=== PATIENT | female | born 1975 | race Caucasian/White ===

== ENCOUNTER 2023-05-05 12:14 | Emergency (ER) | payer MEDICAID, SELFPAY ==
[2023-05-05 12:28] VITALS: BP 129/79; PULSE 75; RESP 16; TEMP 36.7; O2SAT 97; BMI 20.9
--- NOTE | 2023-05-05 12:46 | USCV_ITS ---
Irma Amador Age: 47 Gender: F : 1975 Exam Date: 05/05/2023 12:51 Ordering Phys: Markus Lopez DO Technologist: CT Exam Location: [facility] – [place]_ Indication: PROCEDURES: Venous duplex imaging was performed in only the right upper extremity. The following venous structures were evaluated: internal jugular vein, subclavian vein, axillary vein, and brachial veins. In addition, the basilic vein, cephalic vein, radial vein, and ulnar vein. FINDINGS: The veins of the right upper extremity are readily compressible with normal venous flow dynamics including spontaneous flow, respiratory phasic variation and augmentation. CONCLUSIONS No right upper extremity DVT. Dr. Sahra Adhikari DO (Electronically Signed) Final Date: 05 May 2023 14:13 S
--- NOTE | 2023-05-05 13:55 | ED_ITS ---
HPI - Extremity Problem General: Chief complaint: Extremity Problem,Nontraumatic Stated complaint: Right arm swelling/pain sent by PCP Time Seen by Provider: 05/05/23 13:09 Source: patient Mode of arrival: ambulatory Limitations: no limitations History of Present Illness: Patient is a 47-year-old female presents to ED due to the complaint of swelling to her right hand x several weeks. Patient states approximately 10 weeks ago she developed right upper extremity/facial weakness and was told she had had a stroke. She states she had MRIs that were reportedly normal. She is also seeing cardiology and was ordered Holter monitor, echocardiogram, EKG all of which were reportedly normal. She saw Dr. Reid/neurology today who is ordering additional testing. He wanted her to come to the ED and get an ultrasound of her right upper extremity to rule out DVT. She has no new symptoms at presentation today. MD Complaint: extremity swelling Onset (ago): week(s) Location: right and upper extremity Radiation: none Relieving factors: nothing Exacerbating factors: nothing Associated symptoms: Reports other (UE weakness); Deny chest pain or fever(s) Review of Systems Const: Denies: fever(s), chills, body aches, fatigue or malaise Card: Denies: chest pain Resp: Denies: dyspnea GI: Denies: nausea or vomiting Musc: Reports: extremity swelling; Denies: neck pain, back pain, joint pain, joint swelling, joint redness or joint warmth Neuro: Reports: weakness in extremities (R UE); Denies: headache(s) or numbness in extremities [facility] ED PFSH: Social History Smoking and tobacco status: current every day smoker Second hand smoke exposure: No Smoking risk assessment/counseling performed?: No Alcohol intake: current Alcohol intake frequency: holidays/special occasions only Desire information about alcohol rehabilitation?: No Counseling given: No Substance/Drug Use: never Desire information about substance/drug rehabilitation?: No Counseling given: No Adopted: No Caregiver/support person: No Lives independently: Yes Household members: none Housing: Manufactured/Mobile home Marital status: Single Number of children: 2 Highest education level completed: Some College, No Degree service: No Current occupational status: unemployed Physical Exam Const: COMMON NORMALS: no acute distress, average body habitus, no limitations, healthy appearing, alert and well nourished Resp: COMMON NORMALS: normal respiratory effort and clear to auscultation bilaterally AUSCULTATION: clear to auscultation bilaterally Cardio: COMMON NORMALS: regular rate and regular rhythm RATE: regular rate RHYTHM: regular rhythm Extremity: COMMON NORMALS: capillary refill normal GENERAL: Yes normal exam except as noted RIGHT UPPER EXTREMITY: Yes hand & digits (swelling noted throughout R hand/digits) OTHER: UE weakness, decreased visual merchandising assistant strength; normal cap refill/pulses; compartments are soft Neuro: SENSORIUM/ORIENTATION: Yes alert Course Vital Signs: Vital signs: Vital Signs Temperature 98.0 F 05/05/23 12:28 Pulse Rate 75 05/05/23 12:28 Respiratory Rate 16 05/05/23 12:28 Blood Pressure 129/79 05/05/23 12:28 Pulse Oximetry 97 05/05/23 12:28 Oxygen Delivery Me thod Room Air 05/05/23 12:28 MDM - Extremity (Nontraumatic) Medical Decision Making No DVT. She can continue to follow up with neurology for etiology into her right upper extremity weakness. Discharge Plan Discharge Patient Disposition: Home Clinical Impression: Swelling of right hand Condition: Stable Prescriptions: No Action rosuvastatin [Crestor] 20 mg tablet 20 mg PO DAILY Qty: 60 3RF Discharge Orders: Discharge ED (Routine); Ordered 05/05/23 Ordered By: Joann Gale Referrals: Rosetta Bailey FNP-C [Primary Care Provider] - Activity Restrictions/Additional Instructions: As we discussed ultrasound today did not show a DVT. Please continue to follow- up with neurologist for further evaluation of your right upper extremity weakness. Coding Level of Care Code ED Oracle Engineer for Jimmy Gregory
== END 2023-05-05 15:34 | disposition home or self-care (01) ==
PROVIDERS: Emergency Provider Physician Assistant; PCP Nurse Practitioner Family
DX: M79.89 Other specified soft tissue disorders (principal); F17.210 Nicotine dependence, cigarettes, uncomplicated
CPT/HCPCS: 93971; 99284

== ENCOUNTER → 2023-05-11 08:49 | Outpatient (BNVA) | payer MEDICAID, SELFPAY | PROVIDERS: PCP Nurse Practitioner Family; Visit Provider Nurse Practitioner Family | DX: M25.40 Effusion, unspecified joint (principal); M79.89 Other specified soft tissue disorders; R29.898 Other symptoms and signs involving the musculoskeletal system; Z86.73 Personal history of transient ischemic attack (TIA), and cerebral infarction without residual deficits | CPT/HCPCS: 80053; 80061; 84443; 85025; 85651; 86140; 86160; 86162; 86235; 86255; 86376; 86431 ==

== ENCOUNTER 2023-05-20 08:29 | Outpatient (CLI) | payer MEDICAID, SELFPAY ==
--- NOTE | 2023-05-20 08:45 | USCV_ITS ---
Irma Amador Age: 47 Gender: F : 1975 Exam Date: 05/20/2023 08:46 Ordering Phys: Antwan Reid MD Technologist: JOSE A Exam Location: [facility] – [place] Indication: TIA Risk Factors: Previous Vascular Surgery: Right Brachial BP: / Left Brachial BP: / Right Left Velocity (cm/s) Spectral Plaque Velocity (cm/s) Spectral Plaque Syst/Diast Broadening Syst/Diast Broadening 84.60/ 26.00 Prox CCA 84.70 / 31.10 80.00/ 26.30 Mid CCA 91.70 / 31.10 80.00/ 34.40 Distal CCA 62.90 / 22.50 50.90/ 23.30 Prox ICA 46.10 / 18.60 72.70/ 29.10 Mid ICA 66.40 / 29.80 62.50/ 27.60 Distal ICA 70.40 / 37.60 62.80 ECA 67.70 0.86 ICA/CCA 0.77 Antegrade Vertebral Antegrade 48.60/ 14.50 cm/s 40.10/ 16.60 cm/s Tri Subclavian Tri 79.50 78.20 FINDINGS Comparison: none available. No significant elevation of systolic or diastolic velocities. Waveforms are normal. Mild carotid atherosclerosis. Antegrade vertebral arteries. CONCLUSIONS Bilateral ICA stenosis less than 50%. Dr. Sahra Adhikari DO (Electronically Signed) Final Date: 20 May 2023 09:29 S
--- NOTE | 2023-05-20 09:30 | MR_ITS ---
WS: [id number] MRI HEAD WITHOUT CONTRAST TECHNIQUE: Sagittal T1, T2 axial, T2 axial FLAIR, axial and coronal T1 images, axial susceptibility w eighted imaging, axial diffusion weighted images, and coronal T2 images were obtained. CLINICAL INFORMATION: I99.8 - Other disorder of circulatory system COMPARISON: None. FINDINGS: No evidence of restricted diffusion to suggest acute ischemia. Ventricular system and basilar cistern s are patent. No suspicious intracranial signal normalities. Normal posterior fossa. Normal vascular flow voids at the skull base. Paranasal sinuses are well aerated. Mastoid air cells are well aerated. Normal posterior nasopharynx and parapharyngeal fat. No hemosiderin on susceptibly weighted images. N ormal optic chiasm and pituitary infundibulum. Temporal lobes and hippocampal formations are normal i n appearance. IMPRESSION: 1. No evidence of restricted diffusion to suggest acute ischemia 2. No suspicious intracranial signal abnormalities. 3. No hemosiderin on susceptibility-weighted images. 4. No other suspicious findings.
== END 2023-05-20 08:30 | disposition home or self-care (01) ==
PROVIDERS: PCP Nurse Practitioner Family; Visit Provider Psychiatry & Neurology Neurology
DX: I99.8 Other disorder of circulatory system (principal)
CPT/HCPCS: 70551; 93880

== ENCOUNTER → 2024-05-05 09:10 | Outpatient (BNVA) | payer OTHER, SELFPAY | PROVIDERS: PCP Nurse Practitioner Family; Visit Provider Nurse Practitioner Family | DX: R29.90 Unspecified symptoms and signs involving the nervous system (principal) | CPT/HCPCS: 80053; 80061; 84443; 85025 ==

== ENCOUNTER → 2024-06-26 09:33 | Outpatient (BNVA) | payer OTHER, SELFPAY | PROVIDERS: PCP Nurse Practitioner Family; Visit Provider Nurse Practitioner Family | DX: G43.109 Migraine with aura, not intractable, without status migrainosus (principal); R53.1 Weakness | CPT/HCPCS: 85651 ==

== ENCOUNTER 2024-07-06 12:20 | Outpatient (CLI) | payer OTHER, SELFPAY ==
--- NOTE | 2024-07-06 13:00 | MR_ITS ---
WS: [id number] MRI HEAD WITHOUT CONTRAST TECHNIQUE: Sagittal T1, T2 axial, T2 axial FLAIR, axial and coronal T1 images, axial susceptibility w eighted imaging, axial diffusion weighted images, and coronal T2 images were obtained. Patient deferr ed contrast. CLINICAL INFORMATION: I63.9 - Cerebral infarction, unspecified COMPARISON: 2022 FINDINGS: No evidence of restricted diffusion to suggest acute ischemia. Ventricular system and basal cisterns are patent. No suspicious intracranial signal abnormalities. Normal junior-white differentiation. Kayy l posterior fossa. Normal vascular flow voids at the skull base. No extra-axial fluid collections. No mass of mass or mass effect. Paranasal sinuses and mastoid air cells are well aerated. Mild mucosal thickening RIGHT mastoid tip. Normal posterior nasopharynx. No hemosiderin on the susceptibly weighted images. Normal optic chiasm and pituitary infundibulum. Te mporal lobes and hippocampal formations are normal in appearance. No other suspicious findings. MR/MR head wo con* [id number] IMPRESSION: 1. No evidence of restricted diffusion to suggest acute ischemia. 2. No suspicious intracranial signal abnormalities. 3. No other acute findings.
--- NOTE | 2024-07-06 13:45 | MR_ITS ---
WS: [id number] MRI CERVICAL SPINE NONCONTRAST TECHNIQUE: Sagittal T1, T2 and STIR imaging. Axial T2, gradient, and fiesta imaging. CLINICAL INFORMATION: I63.9 - Cerebral infarction, unspecified COMPARISON: None. FINDINGS: Straightening of the normal cervical lordosis. Cord signal is normal. No high-grade central canal sidney nosis. C2-C3: Normal. C3-C4: Mild annular bulging. Tiny annular fissure. Spinal canal and foramen are patent. C4-C5: Minimal disc bulging. Mild facet arthropathy. Spinal canal and foramen are patent. C5-C6: Mild disc bulging with mild facet arthropathy. Mild LEFT foraminal narrowing. Spinal canal and RIGHT foramen are patent. C6-C7: Disc osteophyte complex with endplate ridging. Mild LEFT and no significant RIGHT foraminal na rrowing. Spinal canal is patent. C7-T1: Mild LEFT and no significant RIGHT bony foraminal narrowing. Spinal canal is patent. Visualized brain stem structures: Normal. Prevertebral soft tissues: Normal. T2 hyperintense RIGHT thyroid nodule measuring 1.9 x 1.5 x 1.3 cm. This can be followed up with ultra sound thyroid. Tiny shallow central protrusion in the upper thoracic spine at T3-T4. MR/MR cervical spin wo con* [id number] IMPRESSION: 1. Straightening of the normal cervical lordosis. Cord signal is normal. 2. Mild LEFT C5-C6, C6-C7, and C7-T1 bony foraminal narrowing. 3. T2 hyperintense RIGHT thyroid nodule measuring 1.9 x 1.5 x 1.3 cm. This can be followed up with ultrasound thyroid. 4. Minimal disc bulging with tiny annular fissure C3-4.
--- NOTE | 2024-07-06 14:30 | MR_ITS ---
WS: [id number] MRA HEAD TECHNIQUE: Axial 3-D TOF images obtained with axial images and axial, sagittal, and coronal 2-D refor matted images. CLINICAL INFORMATION: I63.9 - Cerebral infarction, unspecified COMPARISON: None. FINDINGS: Dominant distal LEFT vertebral artery. Smaller but patent distal RIGHT vertebral artery which partial ly ends in PICA. Proximal basilar artery is patent. Normal vascularity to the SHAKER REPAIRER territories bilater ally. Patent RIGHT posterior communicating artery. Both ICAs are patent at the skull base. Normal vascularity to the ALFRED and MCA territories bilaterally . No evidence of high-grade proximal stenosis or aneurysm. MR/MR angio head wo con [id number] IMPRESSION: Unremarkable intracranial MRA.
== END 2024-07-06 12:21 | disposition home or self-care (01) ==
LOC: RAD 12:21
PROVIDERS: PCP Nurse Practitioner Family; Visit Provider Specialist
DX: I63.9 Cerebral infarction, unspecified (principal); R53.1 Weakness; R29.898 Other symptoms and signs involving the musculoskeletal system; M79.89 Other specified soft tissue disorders; M25.78 Osteophyte, vertebrae; E04.1 Nontoxic single thyroid nodule
CPT/HCPCS: 70544; 70551; 72141

== ENCOUNTER 2024-07-11 16:53 | Outpatient (CLI) | payer OTHER, SELFPAY ==
--- NOTE | 2024-07-11 17:15 | USR_ITS ---
PROCEDURE INFORMATION: Exam: US Soft Tissue Head and Neck, TI-RADS Exam date and time: 07/11/2024 5:21 PM Age: 48 years old Clinical indication: Condition or disease; Thyroid disorder; Other: Nontoxic single thyroid nodule; Additional info: E04.1 - nontoxic single thyroid nodule TECHNIQUE: Imaging protocol: Real-time ultrasound scan of the neck with image documentation. Exam focused on the thyroid. COMPARISON: MR head wo con* [id number] 07/06/2024 1:51 PM FINDINGS: Right thyroid lobe: Not enlarged. Left thyroid lobe: Not enlarged. Isthmus: Not thickened. LESION 1: Thyroid nodule 1 Size: 1.8 cm Thyroid nodule 1 Location: Mid right thyroid lobe Thyroid nodule 1 Composition: Mixed cystic and solid Thyroid nodule 1 Echogenicity: Isoechoic Thyroid nodule 1 Shape: Wider than taller Thyroid nodule 1 Margins: Smooth Thyroid nodule 1 Echogenic foci: No Thyroid nodule 1 Points: 2 Lymph nodes: No enlarged nodes. US/US thyroid [id number] IMPRESSION: Mid right thyroid lobe nodule with TI-RADS 2 imaging characteristics. No FNA.
== END 2024-07-11 16:54 | disposition home or self-care (01) ==
LOC: RAD 16:54
PROVIDERS: PCP Nurse Practitioner Family; Visit Provider Specialist
DX: E04.1 Nontoxic single thyroid nodule (principal)
CPT/HCPCS: 76536

== ENCOUNTER 2024-10-17 13:50 | Outpatient (CLI) | payer OTHER, SELFPAY ==
--- NOTE | 2024-10-17 14:00 | US_ITS ---
WS: [id number] ULTRASOUND THYROID TECHNIQUE: Ultrasound of the thyroid. CLINICAL INFORMATION: E04.1 - Nontoxic single thyroid nodule COMPARISON: 07/11/2024 FINDINGS: Thyroid: Right and left thyroid lobes are normal in size and echotexture. Stable complex cystic RIGHT thyroid nodule measuring approximately 1.4 x 1.2 x 2.0 cm appears unchanged compared to previous. No new nodules. Right thyroid lobe: 4.2 cm x 1.7 cm x 1.9 cm Left thyroid lobe: 4.3 cm x 1.5 cm x 1.4 cm. Isthmus: 0.3 mm. Cervical lymphadenopathy: None. US/US thyroid [id number] IMPRESSION: Stable complex cystic RIGHT thyroid nodule described above. TIRADS Category 2: Not suspicious (total points = 2) No FNA
== END 2024-10-17 13:51 | disposition home or self-care (01) ==
LOC: RAD 13:51
PROVIDERS: Family Provider Nurse Practitioner Family; PCP Nurse Practitioner Family; Visit Provider Nurse Practitioner Family
DX: E04.1 Nontoxic single thyroid nodule (principal)
CPT/HCPCS: 76536